=== PATIENT | male | born 1960 | race Caucasian/White ===

== ENCOUNTER 2017-04-19 20:17 | Inpatient (IN) | payer BC, OTHER ==
[~2017-04-19] VITALS: Ht 190.5 cm; Wt 131.5 kg
--- NOTE | 2017-04-19 21:40 | NUR ---
Intake Assessment Assessment done at intake office. Patient is alert & oriented x4. Pt is ambulatory with a steady gait. Speech is clear and audible. Pt appears slightly anxious and is cooperative during interviews. Vitals noted B/P 172/101, AZ 95, RR 18, Temp 97.9, O2Sat 96%. Pt is here for ETOH & benzo. Pt reports allergies to Pollen. No food and drug allergies noted. No seizure history noted. Pt brought his home medications. Explained to pt unit protocols. Pt verbalized understanding.
--- NOTE | 2017-04-19 23:00 | NUR ---
ADMISSION NOTE: Patient is a 56 y.o male admitted at [facility] at approximately 2206 pm of 04/19/17 for medically supervised withdrawal from ETOH & Benzo. Body search done and skin check performed in Room 303, no contraband found. Skin noted to be intact. No bleeding noted. Pt is 6'3" tall and weighs 290 lbs in a standing scale. Pt is cooperative during assessment. Patient is oriented to floor unit and room. Patient follows a diabetic diet at home with no known food and drug allergies. Pt reports allergic to pollen and dust. Pt wishes to be full Code. Patient is alert & oriented x4, ambulatory with a steady gait. Speech is clear and audible. Patient appears anxious but cooperative during interview. No shortness of breath noted. Respiration even & unlabored. Abdomen soft & non-distended. Bowel sounds active in all four quadrants. No nausea/vomiting noted. Patient denies pain and discomfort. Slight hand tremors noted. No hallucinations noted. CIWA 6 noted. Patient noted with past medical history of Hypertension, Borderline Type 2 Diabetes, GERD, Gout, Hyperlipidemia, & Sleep apnea. Per pt, he uses a CPAP machine at night. Patient denies any thoughts of suicide in the past. Pt currently denies SI/HI. Pt was able to provide urine sample for drug screen upon admission and is voiding clear yellow urine with no problems. Substance use: 1. ETOH- Pt has been drinking since 16 years old. Pt drinks over a pint of whiskey daily for over a year. Last drink was on 04/16/17 before he went to detox at [facility]. Pt drank 3/4 of a 1/5 bottle of Whiskey and 3-4 beers. 2. Valium- Pt started taking Valium 17 years ago as prescribed for sleep. Pt takes 5mg of Valium every night. Last use was 5mg of Valium on 04/16/17. Pt denies any treatment history. Per pt, he was at [facility] for detox 3 days ago and was transferred here at [facility] d/t detox center was closed down. Pt came here at [facility] to continue his treatment and plans to go to rehab afterwards. Patient denies being hospitalized in the last 30 days. Patient has never been sober before. Patient reports symptoms when he does not use as tremors, nausea, anxiety & agitation. Patient smokes 20 cigarettes daily. Patient refused flu & pneumonia vaccines, educated patient risk & benefits but still refused. Patient has a PCP. Urine drug screen came back positive for Benzo. Fall & Seizure precautions are in place. All needs attended & met. Safety precautions are in place. Bed locked in lowest position. Both side rails padded & up. Call light within pt's reach. Notified Dr. Ortiz of pt's admission. Will continue to monitor patient.
[2017-04-19] MEDS ORDERED: ONDANSETRON ODT 4 MG TAB.RAPDIS SL PRN (23:15)
[2017-04-19] MEDS ORDERED: HYDROXYZINE PAMOATE 25 MG CAPSULE PO PRN (23:15)
[2017-04-19] MEDS ORDERED: THIAMINE HCL 200 MG/2 ML VIAL IM ONE (23:15)
[2017-04-19] MEDS ORDERED: diphenhydrAMINE 50 MG CAPSULE PO PRN (23:15)
[2017-04-19] MEDS ORDERED: MIRALAX 17 GM POWD.PACK PO PRN (23:15)
[2017-04-19] MEDS ORDERED: DICYCLOMINE HCL 20 MG TABLET PO PRN (23:15)
[2017-04-19] MEDS ORDERED: LORAZEPAM 1 MG TABLET PO PRN ×2 (23:15)
[2017-04-19] MEDS ORDERED: ACETAMINOPHEN 325 MG TABLET PO PRN (23:15)
[2017-04-19] MEDS ORDERED: IBUPROFEN 400 MG TABLET PO PRN (23:15)
[2017-04-19] MEDS ORDERED: MAGNESIUM HYDROXIDE 30 ML LIQUID UDC PO PRN (23:15)
[2017-04-19] MEDS ORDERED: ONDANSETRON 4 MG/2 ML VIAL IM PRN (23:15)
[2017-04-19] MEDS ORDERED: MAG HYDROX/AL HYDROX/SIMETH 30 ML LIQUID UDC PO PRN (23:15)
[2017-04-19] MEDS ORDERED: LOPERAMIDE HCL 2 MG CAPSULE PO PRN ×2 (23:15)
[2017-04-19] MEDS ORDERED: LORAZEPAM 2 MG/1 ML VIAL IM PRN (23:15)
[2017-04-19 23:20] VITALS: BP 144/102
[2017-04-19] MEDS: CLONIDINE HCL 0.1 MG TABLET PO PRN (23:27)
--- NOTE | 2017-04-19 23:27 | NUR ---
PRN Clonidine Patient noted with a B/P 144/102, LA, 93. PRN Clonidine 0.1mg PO given as ordered. Will continue to monitor patient.
--- NOTE | 2017-04-19 23:28 | NUR ---
PRN Ativan Patient presented with hand tremors, anxiety & agitation. Patient appears restless and anxious. CIWA 6 noted at this time. PRN ATivan 1mg administered as ordered. Will reassess in 1 hour.
[2017-04-19] MEDS ORDERED: LORAZEPAM 1 MG TABLET ONE (23:32)
[2017-04-19] MEDS ORDERED: CLONIDINE HCL 0.1 MG TABLET ONE (23:32)
[2017-04-19 23:43] LABS: *AMPHETAMINE, URINE NEGATIVE (NEGATIVE); *BARBITURATE, URINE NEGATIVE (NEGATIVE); *CANNABINOID, URINE NEGATIVE (NEGATIVE); *COCCAINE, URINE NEGATIVE (NEGATIVE); *OPIATE, URINE NEGATIVE (NEGATIVE); *PHENCYCLIDINE SCREEN,URINE NEGATIVE (NEGATIVE)
[2017-04-19] MEDS ORDERED: BLOOD SUGAR DIAGNOSTIC 1 EACH STRIP VI ONE (23:45)
--- NOTE | 2017-04-20 00:28 | NUR ---
PRN Reassessment Patient verbalized decreased in anxiety at this time. Hand tremors felt. CIWA 3 noted. WIll continue to monitor.
[2017-04-20 01:35] LABS: BASOPHILS # (AUTO) 0.1 K/uL (0.0-8.0); BASOPHILS % (AUTO) 0.9 % (0.0-2.0); EOSINOPHILS # (AUTO) 0.4 K/uL (0.0-0.7); EOSINOPHILS % (AUTO) 5.8 % (0.0-7.0); HEMOGLOBIN 18.7 G/DL (14.0-18.0); LYMPHOCYTES % (AUTO) 27.3 % (20.5-51.5); MEAN CORPUSCULAR HEMOGLOBIN 33.6 UUG (27.0-31.0); MEAN CORPUSCULAR HGB CONC 34 g/dL (32.0-37.0); MEAN CORPUSCULAR VOLUME 98.7 FL (82.0-92.0); MONOCYTES # (AUTO) 0.9 K/UL (0.1-1.30); MONOCYTES % (AUTO) 11.8 % (0.0-11.0); NEUTROPHILS % (AUTO) 54.2 % (38.5-71.5); PLATELET COUNT (AUTO) 175 K/UL (150-450); RED BLOOD CELL COUNT(AUTO) 5.57 MIL/UL (4.7-6.1); WHITE BLOOD COUNT (AUTO) 7.4 K/UL (4.0-11.2)
[2017-04-20] MEDS ORDERED: ALLO100T PO (01:41)
[2017-04-20] MEDS ORDERED: BRIN10DR (01:41)
[2017-04-20] MEDS ORDERED: METF10002 PO (01:41)
[2017-04-20] MEDS ORDERED: ASPI-612 PO (01:41)
[2017-04-20] MEDS ORDERED: ESOM40CA PO (01:41)
[2017-04-20] MEDS ORDERED: LISI1TAB13 PO (01:41)
[2017-04-20] MEDS ORDERED: LEVO5TAB13 PO (01:41)
[2017-04-20] MEDS ORDERED: ATOR10TA PO (01:41)
[2017-04-20] MEDS ORDERED: BRIM5DRO EACHEYE (01:41)
[2017-04-20] MEDS ORDERED: CYCL10TA9 PO (01:48)
[2017-04-20] MEDS ORDERED: QUET100T PO (01:48)
[2017-04-20] MEDS ORDERED: PROM12.511 PO (01:48)
[2017-04-20] MEDS ORDERED: THIA100T13 PO (01:48)
[2017-04-20] MEDS ORDERED: CLON0.1T PO (01:48)
[2017-04-20] MEDS ORDERED: FOLI1TAB16 PO (01:48)
[2017-04-20] MEDS ORDERED: HYDR-3895 PO (01:48)
[2017-04-20 02:11] LABS: ETHANOL < 3 MG/DL (0-0)
[2017-04-20 02:52] LABS: CARBON DIOXIDE 25 mmol/L (21-32); CHLORIDE 98 mmol/L (98-107); POTASSIUM 3.5 mmol/L (3.5-5.1)
[2017-04-20 02:53] LABS: ALANINE AMINOTRANSFERASE 79 U/L (16-63); ALKALINE PHOSPHATASE 67 U/L (50-136); AMYLASE 42 U/L (25-115); ASPARTATE AMINOTRANSFERASE 54 U/L (15-37); GLUCOSE 115 mg/dL (74-106); LIPASE 193 U/L (73-393); MAGNESIUM 1.3 mg/dL (1.8-2.4); TOTAL PROTEIN, SERUM 7.6 g/dL (6.4-8.2); UREA NITROGEN, BLOOD 12 mg/dL (7-18)
[2017-04-20 02:57] LABS: THYROID STIMULATING HORMONE 2.068 mIU/mL (0.358-3.740)
--- NOTE | 2017-04-20 04:13 | NUR ---
Mag Ox given Mag Oxide 800mg administered as ordered for Mg levels of 1.3
[2017-04-20] MEDS ORDERED: MAGNESIUM OXIDE 400 MG TABLET PO ONE (04:15)
[2017-04-20 04:16] VITALS: BP 106/79
--- NOTE | 2017-04-20 07:10 | NUR ---
Start of Shift Endorsement received from nightshift nurse. Pt is a 56 y/o male that has been admitted for alcohol dependence. Pt was on a Ativan taper prior to admission before being transferred to [facility]. Pt has not been placed on a taper at this time and symptoms will be monitored by PRN medications until farther evaluation by Dr. Ortiz. Pt received PRN Ativan and Clonidine during shift foreman. Pt is mildly withdrawing at this time AEB CIWA 2. Pt reports sleeping 5 hours and feels rested at this time. VS WNL. Full Code. PT is alert and oriented x4. Pt is in STABLE condition at this time. Remains compliant with medication and diet regimen. All needs have been met, All safety measures in place per hospital policy. Bed in lowest position, side rails up x2, call-light within reach. Will continue to monitor
--- NOTE | 2017-04-20 07:20 | NUR ---
End of Shift Note: Patient is a 56 y/o male admitted for ETOH and Benzo dependence. Patient with past medical history of HTN, Borderline DM Type II, GERD, Gout, Hyperlipidemia, & Sleep Apnea. No seizure history noted. Patient is on a diabetic diet with allergies to Pollen & dust. Patient has no taper yet. Last CIWA is 2. Patient was given PRN Clonidine and a one time dose of Mag Ox 800mg for a Mg level of 1.3. Pt remains stable and vitals WNL. Pt slept for a total of 5 hours. Pt consumed 500 ml of fluids and voided 1x with no bowel movement. All needs attended. Safety measures in place. Will endorse pt to day shift nurse.
[2017-04-20 08:00] VITALS: BP 148/100
[2017-04-20] MEDS ORDERED: TUBERCULIN,PURIF.PROT.DERIV. 5 TU/0.1 ML TEST ID ONE (09:00)
[2017-04-20] MEDS: FOLIC ACID 1 MG TABLET PO SCH (09:21)
[2017-04-20] MEDS: THIAMINE HCL 100 MG TABLET PO SCH (09:21)
[2017-04-20] MEDS: MULTIVITAMINS,THERAPEUTIC TABLET PO SCH (09:21)
[2017-04-20] MEDS: METFORMIN 500MG PO SCH ×2 (10:58→18:27)
[2017-04-20] MEDS ORDERED: BRINZOLAMIDE 1% OPHT DROP 10 ML BOTTLE EACHEYE SCH (11:15)
[2017-04-20] MEDS: LORAZEPAM 1 MG TABLET PO SCH ×4 (11:30→23:00)
[2017-04-20 12:00] VITALS: BP 130/82
[2017-04-20] MEDS: AZOPT OPTH EACHEYE SCH (12:16)
[2017-04-20] MEDS: OPTH EACHEYE SCH ×2 (12:22→20:12)
[2017-04-20] MEDS: BRIMONIDINE 0.15% EACHEYE SCH ×2 (12:22→20:12)
[2017-04-20] MEDS ORDERED: QUETIAPINE FUMARATE 100 MG TABLET PO PRN (14:15)
[2017-04-20] MEDS: GABAPENTIN 300 MG CAPSULE PO SCH ×2 (14:58→20:04)
[2017-04-20 16:00] VITALS: BP 142/81
[2017-04-20] MEDS ORDERED: BRIMONIDINE P 0.15% EACHEYE SCH (17:00)
[2017-04-20] MEDS ORDERED: LEVOCETIRIZINE DIHYDROCHLORIDE PO SCH (18:00)
[2017-04-20] MEDS ORDERED: METFORMIN HCL 500 MG TABLET PO SCH (18:00)
[2017-04-20] MEDS: LEVOCETIRIZINE 5MG PO SCH (18:27)
--- NOTE | 2017-04-20 19:19 | NUR ---
End of Shift Endorsement given to nightshift nurse. Pt is a 56 y/o male that has been admitted for alcohol dependence. Pt was on a Ativan taper prior to admission before being transferred to [facility]. Pt has has been placed on a modified Ativan taper by Dr. Ortiz. Pt has received all scheduled doses of Ativan stating that he doesn't need it. Pt has not received any PRN medication. Pt has remained compliant with rest of his medications. Pt is tolerating the detox process well AEB CIWA 3 at 1600. Education pt on S/e of alcohol withdrawal. Educated pt on diet regimen. Encouraged pt to participate in groups and activities. Pt participated in groups and activities. Intake: 1980ml, Void x4, BM x2. VS WNL. Full Code. PT is alert and oriented x4. Pt is in STABLE condition at this time. Remains compliant with medication and diet regimen. All needs have been met, All safety measures in place per hospital policy. Bed in lowest position, side rails up x2, call-light within reach. Will continue to monitor
--- NOTE | 2017-04-20 19:30 | NUR ---
Start of Shift Note: Patient is a 56 y/o male admitted for ETOH and Benzo dependence. Patient with past medical history of HTN, Borderline DM Type II, GERD, Gout, Hyperlipidemia, & Sleep Apnea. No seizure history noted. Patient is on a diabetic diet with allergies to Pollen & dust. Skin noted to be intact. Patient was placed on a modified Ativan taper. Pt has been refusing scheduled Ativan during day shift. Last CIWA is 3. No PRN medications were given. Patient remains stable. Patient is alert & oriented x4. No shortness of breath noted. Patient uses CPAP at night. Abdomen soft & non-distended. No nausea noted. Patient denies pain & discomfort. Slight anxiety noted. Hand tremors felt. Patient denies hallucinations. Safety precautions are in place. Bed locked in lowest position. Both side rails up. Call light within pt's reach. Will continue to monitor patient.
[2017-04-20 20:00] VITALS: BP 141/100
[2017-04-20] MEDS: CLONIDINE HCL 0.1 MG TABLET PO PRN (20:03)
[2017-04-20] MEDS ORDERED: OPTH EACHEYE SCH (21:00)
[2017-04-20] MEDS ORDERED: BRIMONIDINE 0.15% EACHEYE SCH (21:00)
[2017-04-21] VITALS: BP 126/82
[2017-04-21 04:00] VITALS: BP 112/82
[2017-04-21 07:00] LABS: BASOPHILS # (AUTO) 0.1 K/uL (0.0-8.0); BASOPHILS % (AUTO) 0.9 % (0.0-2.0); EOSINOPHILS # (AUTO) 0.5 K/uL (0.0-0.7); EOSINOPHILS % (AUTO) 6.7 % (0.0-7.0); HEMATOCRIT 54.3 % (40-50); HEMOGLOBIN 18.4 G/DL (14.0-18.0); LYMPHOCYTES % (AUTO) 29.2 % (20.5-51.5); MEAN CORPUSCULAR HEMOGLOBIN 33.8 UUG (27.0-31.0); MEAN CORPUSCULAR HGB CONC 34 g/dL (32.0-37.0); MEAN CORPUSCULAR VOLUME 99.6 FL (82.0-92.0); MONOCYTES # (AUTO) 0.9 K/UL (0.1-1.30); MONOCYTES % (AUTO) 12.9 % (0.0-11.0); NEUTROPHILS # (AUTO) 3.5 K/UL (1.8-8.9); NEUTROPHILS % (AUTO) 50.3 % (38.5-71.5); PLATELET COUNT (AUTO) 161 K/UL (150-450); RED BLOOD CELL COUNT(AUTO) 5.45 MIL/UL (4.7-6.1)
--- NOTE | 2017-04-21 07:08 | NUR ---
Start of Shift Endorsement received from nightshift nurse. Pt is a 56 y/o male that has been admitted for alcohol dependence. Pt was on a Ativan taper prior to admission before being transferred to [facility]. Pt will complete his taper today and will be scheduled for discharge tomorrow, 04/22/17. Pt refused 2300 Ativan. Pt reports feeling good and being ready for discharge. Pt received PRN Clonidine. Pt is mildly withdrawing at this time AEB CIWA 2 at midnight. Pt reports sleeping 8 hours and feels rested at this time. Pt has been scheduled to complete his detox today. VS WNL. Full Code. PT is alert and oriented x4. Pt is in STABLE condition at this time. Remains compliant with medication and diet regimen. All needs have been met, All safety measures in place per hospital policy. Bed in lowest position, side rails up x2, call-light within reach. Will continue to monitor
[2017-04-21 07:12] LABS: BILIRUBIN,DIRECT 0.1 mg/dL (0.0-0.2); BILIRUBIN,TOTAL 0.8 mg/dL (0.2-1.0); MAGNESIUM 1.8 mg/dL (1.8-2.4); PHOSPHOROUS 3.3 mg/dL (2.5-4.9); POTASSIUM 4.6 mmol/L (3.5-5.1); TOTAL PROTEIN, SERUM 7.4 g/dL (6.4-8.2)
--- NOTE | 2017-04-21 07:13 | NUR ---
End of Shift Note: Pt had an uneventful night. Patient continues on a modified Ativan taper and tolerating well. Pt received his 1900 Ativan but refused his 2300 Ativan, per pt he does not need it. Patient is noted with a CIWA of 2 and tolerating detox well. No PRN medications were given during my shift. Patient remained compliant with medications. Pt slept for a total of 8 hours. Pt consumed 1096 ml of fluids and voided 2x with 1x bowel movement. All needs attended. Safety measures in place. Will endorse pt to day shift nurse
[2017-04-21 08:00] VITALS: BP 149/98
[2017-04-21] MEDS: FOLIC ACID 1 MG TABLET PO SCH (08:30)
[2017-04-21] MEDS: THIAMINE HCL 100 MG TABLET PO SCH (08:31)
[2017-04-21] MEDS: BRIMONIDINE 0.15% EACHEYE SCH ×2 (08:32→20:22)
[2017-04-21] MEDS: AZOPT OPTH EACHEYE SCH (08:32)
[2017-04-21] MEDS: METFORMIN 500MG PO SCH ×2 (08:32→18:28)
[2017-04-21] MEDS: MULTIVITAMINS,THERAPEUTIC TABLET PO SCH (08:32)
[2017-04-21] MEDS: GABAPENTIN 300 MG CAPSULE PO SCH ×3 (08:32→20:22)
[2017-04-21] MEDS: OPTH EACHEYE SCH ×2 (08:32→20:22)
[2017-04-21] MEDS: LISINOPRIL PO SCH (08:33)
[2017-04-21] MEDS: HYDROCHLOROTHIAZIDE PO SCH (08:33)
[2017-04-21] MEDS: ALLOPURINOL 100 MG TABLET PO SCH (08:33)
[2017-04-21] MEDS: ESOMEPRAZOLE 40MG PO SCH (08:33)
[2017-04-21] MEDS ORDERED: LISINOPRIL PO SCH (09:00)
[2017-04-21] MEDS ORDERED: ASPIRIN 325 MG TABLET PO SCH (09:00)
[2017-04-21] MEDS ORDERED: HCTZ PO SCH (09:00)
[2017-04-21] MEDS ORDERED: LORAZEPAM 1 MG TABLET PO SCH (09:00)
[2017-04-21 09:07] LABS: HEPATITIS B SURFACE AG Negative (Negative)
[2017-04-21] MEDS: ASPIRIN EC 81 MG TABLET.DR PO SCH (09:45)
[2017-04-21] MEDS ORDERED: LORAZEPAM 1 MG TABLET PO PRN ×2 (10:45)
[2017-04-21 12:00] VITALS: BP 148/87
[2017-04-21 13:33] LABS: BAND % (MANUAL) 1 % (0-10); EOSINOPHILS % (MANUAL) 6 % (0-8); LYMPHOCYTES % (MANUAL) 34 % (20-40); MONOCYTES % (MANUAL) 13 % (2-10); NEUTROPHILS % (MANUAL) 46 % (42-75)
[2017-04-21 16:00] VITALS: BP 132/92
[2017-04-21] MEDS: LEVOCETIRIZINE 5MG PO SCH (18:29)
--- NOTE | 2017-04-21 18:48 | NUR ---
End of Shift Endorsement given to nightshift nurse. Pt is a 56 y/o male that has been admitted for alcohol dependence. Pt was on a Ativan taper prior to admission before being transferred to [facility]. Pt has has been placed on a modified Ativan taper by Dr. Ortiz. Pt has refused all scheduled doses of Ativan stating that he doesn't need it. Pt has not received any PRN medication. Pt has completed the tapers and has been scheduled to be discharged tomorrow. All discharge education and documentation has been completed. Pt has remained compliant with rest of his medications. Pt is tolerating the detox process well AEB CIWA 2 at 1600. . Encouraged pt to participate in groups and activities. Pt participated in groups and activities. Intake: 2037ml, Void x6, BM x2. VS WNL. Full Code. PT is alert and oriented x4. Pt is in STABLE condition at this time. Remains compliant with medication and diet regimen. All needs have been met, All safety measures in place per hospital policy. Bed in lowest position, side rails up x2, call-light within reach. Will continue to monitor
--- NOTE | 2017-04-21 19:29 | NUR ---
Start of Shift Endorsement received from AM nurse. Pt is a 56 y/o male that has been admitted for alcohol dependence. Pt was on a Ativan taper prior to admission before being transferred to [facility]. Patient has completed his taper and is scheduled for discharge tomorrow, 04/22/17. Last CIWA 2. VS WNL. Full Code. PT is alert and oriented x4.Patient is resting in room, snacking, watching TV at present time with no current complaints. Remains compliant with medication and diet regimen. All needs have been met, safety measures in place per hospital policy. Bed in lowest position, side rails up x2, call-light within reach. Will continue to monitor
[2017-04-21 20:00] VITALS: BP 140/97
--- NOTE | 2017-04-22 | NUR ---
VS refused, CIWA deferred Patient refused Vital sign assessment at 0000 due to sleep, states "Im leaving in the am I just want to sleep" CIWA deferred for sleep.
--- NOTE | 2017-04-22 04:09 | NUR ---
VS refused, CIWA deferred Patient refused Vital sign assessment at 0400 due to sleep. Breathing even and unlabored. Respirations 18 CIWA deferred for sleep.
--- NOTE | 2017-04-22 06:55 | NUR ---
End of Shift note. Patient is a 56 year old male admitted to [facility] on 04-19-17 for Alcohol Detox. Patient has completed Ativan taper. He has past medical history of HTN, Borderline DM type 2, Gout, Sleep Apnea, GERD, hyperlipidemia. Patient is on fall and seizure precaution (no known seizure history) He is a full code, and on a regular diet. He has allergy to Pollen. Vital signs at 1999 BP 140/97, P 100, R 18, SPO2 95% on RA, T 97.9. CIWA 3. Patient slept a total of 8 hours. Intake 1078 ml. output 4 voids. Mood stable. Safety measures in place, bed locked in lowest position, call light within reach. Report given to AM nurse.
--- NOTE | 2017-04-22 07:10 | NUR ---
Start of Shift Endorsement received from lieutenant/deputy nurse. Pt is a 56 y/o male that has been admitted to [facility] for alcohol dependence/withdrawal. Pt is full code regular diet continues on fall and seizure precautions, pt reports being allergic to pollen. Pt was on a Ativan taper prior to admission before being transferred to [facility]. Patient has completed his taper and is scheduled for discharge today. His Last CIWA 3 taken at 0400. PT is alert and oriented x4.Patient is resting in room, snacking, watching TV at present time with no current complaints. Fluids encouraged to facilitate the detox process. Pt slept for a total of 8 hours last night. No PRN medication were given last night. Pt Remains compliant with medication and diet regimen. All needs have been met, safety measures in place per hospital policy. Bed in lowest position, side rails up x2, call-light within reach. Will continue to monitor and provide care per POC.
[2017-04-22 08:00] VITALS: BP 138/100
[2017-04-22] MEDS ORDERED: LORAZEPAM 1 MG TABLET PO SCH (09:00)
[2017-04-22] MEDS: ALLOPURINOL 100 MG TABLET PO SCH (09:06)
[2017-04-22] MEDS: ESOMEPRAZOLE 40MG PO SCH (09:06)
[2017-04-22] MEDS: OPTH EACHEYE SCH (09:06)
[2017-04-22] MEDS: METFORMIN 500MG PO SCH (09:06)
[2017-04-22] MEDS: AZOPT OPTH EACHEYE SCH (09:06)
[2017-04-22] MEDS: BRIMONIDINE 0.15% EACHEYE SCH (09:06)
[2017-04-22] MEDS: LISINOPRIL PO SCH (09:07)
[2017-04-22] MEDS: ASPIRIN EC 81 MG TABLET.DR PO SCH (09:07)
[2017-04-22] MEDS: HYDROCHLOROTHIAZIDE PO SCH (09:07)
[2017-04-22] MEDS: GABAPENTIN 300 MG CAPSULE PO SCH (09:07)
[2017-04-22] MEDS: MULTIVITAMINS,THERAPEUTIC TABLET PO SCH (09:07)
[2017-04-22] MEDS: THIAMINE HCL 100 MG TABLET PO SCH (09:07)
[2017-04-22] MEDS: FOLIC ACID 1 MG TABLET PO SCH (09:07)
--- NOTE | 2017-04-22 09:45 | NUR ---
DISCHARGE NOTE Pt is in stable condition. Vitals WNL, Pt alert and oriented x4, skin intact, Pt denies any SI/HI. All discharge paperwork completed dated and signed. Pt educated about discharge instructions, what to do after discharge when to contact MD as well as the s/s reportable to MD, pt verbalized understanding. Pt was provided with all of his discharge paperwork. Pt's last CIWA:1 taken at 0800. Pt was discharged from [facility] on 04/22/17 at 0940. Pt left the building with all of his belongings, prescriptions and medications. MD and psychiatrist have been contacted notified and aware of pt's d/c.
== END 2017-04-22 09:40 | DRG 897 ==
LOC: SRC 21:01
PROVIDERS: ADMIT Internal Medicine; ATTEND Internal Medicine
PROC: HZ2ZZZZ Detoxification Services for Substance Abuse Treatment (ICD-10-PCS; principal; 2017-04-19)
DX: F10.230 Alcohol dependence with withdrawal, uncomplicated (principal); K70.10 Alcoholic hepatitis without ascites; E83.42 Hypomagnesemia; E87.1 Hypo-osmolality and hyponatremia; Y90.9 Presence of alcohol in blood, level not specified; G47.00 Insomnia, unspecified; E78.5 Hyperlipidemia, unspecified; H40.9 Unspecified glaucoma; F43.10 Post-traumatic stress disorder, unspecified; G47.33 Obstructive sleep apnea (adult) (pediatric); K21.9 Gastro-esophageal reflux disease without esophagitis; I10 Essential (primary) hypertension; Z79.82 Long term (current) use of aspirin; Z79.84 Long term (current) use of oral hypoglycemic drugs; Z79.899 Other long term (current) drug therapy; M10.9 Gout, unspecified; E11.9 Type 2 diabetes mellitus without complications; F32.9 Major depressive disorder, single episode, unspecified
CPT/HCPCS: 36415; 80307; 80346; 83690; 83735; 84100; 84443; 85025; 86592; 86705; 86803; 87340; 87806; G0480